=== PATIENT | male | born 1950 | race Hispanic/Latino ===

== ENCOUNTER 2019-08-12 07:32 | Observation (INO) | payer MEDICARE ==
[2019-08-11 15:24] LABS: BASOPHILS % 0.5 % (0.0-1.0); EOSINOPHILS # (AUTO) 0.1 (0.0-0.4); EOSINOPHILS % 0.9 % (0.0-6.0); HEMATOCRIT 44.6 % (38.2-49.6); LYMPHOCYTES # (AUTO) 2.2 (1.0-3.2); LYMPHOCYTES % 29.5 % (18.0-39.1); MEAN CORPUSCULAR HGB CONC 33.6 g/dL (31-35); MEAN CORPUSCULAR VOLUME 86.1 fL (81-99); MONOCYTES # (AUTO) 0.7 (0.2-0.8); MONOCYTES % 8.9 % (4.4-11.3); NEUTROPHILS # (AUTO) 4.5 (2.1-6.9); NEUTROPHILS % 59.9 % (38.7-80.0); PLATELET COUNT 219 x10e3/uL (140-360); RED BLOOD COUNT 5.18 x10e6/uL (4.3-5.7)
[2019-08-11 15:42] LABS: ANION GAP 18.5 mmol/L (8-16); CREATININE, SERUM 1.33 mg/dL (0.72-1.25); POTASSIUM 4.5 mmol/L (3.5-5.1)
--- NOTE | 2019-08-11 16:10 | Diagnostic Imaging Report ---
EXAMINATION: PA and lateral views of the chest. COMPARISON: Chest 2 views 06/15/2019 CLINICAL HISTORY: Preoperative exam for prostate surgery DISCUSSION: Lines/tubes: None. Lungs: The lungs are well inflated and clear. There is no evidence of pneumonia or pulmonary edema. Pleura: There is no pleural effusion or pneumothorax. Heart and mediastinum: Cardiomediastinal silhouette is unremarkable. Pulmonary vasculature is normal. Bones and soft tissues: No acute bony abnormalities. Mild age-appropriate degenerative changes in the thoracic spine IMPRESSION: No acute cardiopulmonary abnormalities. Signed by: Dr. Tl Callejas M.D. on 08/11/2019 4:06 PM
[~2019-08-12] VITALS: Ht 180.3 cm; Wt 95.3 kg
[~2019-08-12 07:32] MED LIST: ASPIR 8181 MG PO; ATORVASTATIN CA10 MG PO; ATORVASTATIN CA20 MG PO; CLOPIDOGREL75 MG PO; GLIPIZIDE5 MG PO; JANUMET 50-1,01 EACH PO; LISINOPRIL2.5 MG PO; METOPROLOL TART25 MG PO
[2019-08-12] MEDS ORDERED: SODIUM CHLORIDE 0.9% 1000ML 1,000 ML ONE (07:57)
[2019-08-12] MEDS ORDERED: CLINDAMYCIN 300MG 50 ML IV ONE (07:57)
[2019-08-12] MEDS ORDERED: GENTAMICIN 80MG/NS 100 ML 200 ML IV ONE (07:57)
[2019-08-12] MEDS ORDERED: PIPER-TAZ 3.375 GM 50 ML ONE (07:57)
[2019-08-12] MEDS ORDERED: INSULIN REGULAR, HUMAN 100 UNIT/1 ML 3ML VIAL ONE (08:26)
[2019-08-12] MEDS ORDERED: IOPAMIDOL 300MG/ML 50ML INFUS..BTL IV ONE (10:17)
[2019-08-12] MEDS ORDERED: B&O 60MG R/S 60 MG SUPP PR ONE (10:18)
[2019-08-12] MEDS ORDERED: ONDANSETRON HCL INJ 2MG/ML 2ML 2 MG/ML VIAL IV PRN (10:45)
[2019-08-12] MEDS ORDERED: B&O 60MG R/S 60 MG SUPP PR PRN (10:45)
[2019-08-12] MEDS ORDERED: ACETAMINOPHEN/CODEINE 300MG - 30MG TAB PO PRN (10:45)
[2019-08-12] MEDS ORDERED: DIPHENHYDRAMINE HCL 25 MG CAP PO PRN (10:45)
[2019-08-12] MEDS ORDERED: ACETAMINOPHEN 1000 MG/100 ML 100 ML IV ONE (11:18)
[2019-08-12] MEDS ORDERED: FUROSEMIDE INJ 10 MG/ML 4 ML VIAL ONE (11:40)
[2019-08-12] MEDS ORDERED: LIDOCAINE HCL 2% LOCAL INJ 5 ML SDV VIAL INJ ONE (12:49)
[2019-08-12] MEDS ORDERED: ONDANSETRON HCL INJ 2MG/ML 2ML 2 MG/ML VIAL ONE (12:49)
[2019-08-12] MEDS ORDERED: ACETAMINOPHEN 1000 MG/100 ML IV ONE (12:49)
[2019-08-12] MEDS ORDERED: SEVOFLURANE INHAL SOLN 250 ML PEN BTL ONE (12:49)
[2019-08-12] MEDS ORDERED: PROPOFOL IV EMULSION 10 MG/ML 20 ML VIAL ONE (12:49)
[2019-08-12] MEDS: PHENAZOPYRIDINE HCL 100 MG TAB PO SCH ×2 (13:00→17:46)
[2019-08-12 14:05] VITALS: BP 136/63
[2019-08-12 14:06] VITALS: BP 136/63
[2019-08-12 14:28] LABS: BASOPHILS % 0.4 % (0.0-1.0); EOSINOPHILS # (AUTO) 0.1 (0.0-0.4); EOSINOPHILS % 0.7 % (0.0-6.0); LYMPHOCYTES # (AUTO) 1.7 (1.0-3.2); LYMPHOCYTES % 19.2 % (18.0-39.1); MEAN CORPUSCULAR HEMOGLOBIN 28.7 pg (28-32); MEAN CORPUSCULAR HGB CONC 33.3 g/dL (31-35); MONOCYTES # (AUTO) 0.6 (0.2-0.8); NEUTROPHILS # (AUTO) 6.5 (2.1-6.9); NEUTROPHILS % 72.3 % (38.7-80.0); PLATELET COUNT 210 x10e3/uL (140-360); RED BLOOD COUNT 5.23 x10e6/uL (4.3-5.7)
[2019-08-12 14:46] LABS: ANION GAP 17.6 mmol/L (8-16); CALCIUM 9.2 mg/dL (8.4-10.2); CREATININE, SERUM 1.27 mg/dL (0.72-1.25); POTASSIUM 4.6 mmol/L (3.5-5.1)
[2019-08-12] MEDS: PIPER-TAZ 3.375 GM 50 ML IV SCH ×2 (15:00→22:02)
[2019-08-12] MEDS: SOD CHL 0.45%/POT CHL 20MEQ 1,000 ML IV SCH ×2 (15:00→18:34)
[2019-08-12 15:55] VITALS: BP 129/62
[2019-08-12] MEDS ORDERED: DEXTROSE 50% SYRINGE 50 ML IV PRN (17:30)
[2019-08-12] MEDS: DOCUSATE SODIUM 100 MG CAP PO SCH (17:46)
[2019-08-12] MEDS: INSULIN LISPRO 100 UNIT/1 ML 3ML VIAL SQ SCH ×2 (18:24→20:23)
[2019-08-12] MEDS: METFORMIN HCL 500 MG TAB PO SCH (18:24)
[2019-08-12] MEDS: SITAGLIPTIN 100 MG TAB PO SCH (18:24)
--- NOTE | 2019-08-12 19:13 | NUR ---
WALKING ROUNDS PERFORMED, RECEIVED PT LAYING SEMI FOWLERS IN BED, AAOX3, RR EVEN AND NON-LABORED, ON ROOM AIR. NO S/SX OF DISTRESS NOTED. CBI TO ЮЛИЯ. LEFT PT LAYING SEMI FOWLERS IN BED, BED IN LOW LOCKED POSITION, SIDE RAILS UPX2, CALL LIGHT AND PHONE WITHIN REACH.
[2019-08-12] MEDS ORDERED: FENTANYL CITRATE/PF 100MCG/2 ML INJ ONE (19:55)
[2019-08-12 20:00] VITALS: BP 103/63
[2019-08-12] MEDS: ATORVASTATIN 40 MG TAB PO SCH (20:23)
[2019-08-12 20:24] VITALS: BP 103/63
[2019-08-12] MEDS ORDERED: ATORVASTATIN 20 MG TAB PO SCH (21:00)
[2019-08-13] VITALS (8 sets, daily range): BP systolic 103–138; BP diastolic 56–78
[2019-08-13] MEDS: SOD CHL 0.45%/POT CHL 20MEQ 1,000 ML IV SCH (00:23)
[2019-08-13] MEDS: PIPER-TAZ 3.375 GM 50 ML IV SCH ×3 (05:57→21:30)
[2019-08-13 06:01] LABS: BASOPHILS % 0.3 % (0.0-1.0); EOSINOPHILS % 0.1 % (0.0-6.0); HEMATOCRIT 42.4 % (38.2-49.6); HEMOGLOBIN 14.3 g/dL (14.0-18.0); LYMPHOCYTES # (AUTO) 2.1 (1.0-3.2); LYMPHOCYTES % 15.4 % (18.0-39.1); MEAN CORPUSCULAR HEMOGLOBIN 28.8 pg (28-32); MEAN CORPUSCULAR HGB CONC 33.7 g/dL (31-35); MEAN CORPUSCULAR VOLUME 85.5 fL (81-99); MONOCYTES # (AUTO) 1.2 (0.2-0.8); MONOCYTES % 8.9 % (4.4-11.3); NEUTROPHILS # (AUTO) 10.1 (2.1-6.9); NEUTROPHILS % 74.7 % (38.7-80.0); PLATELET COUNT 199 x10e3/uL (140-360); RED BLOOD COUNT 4.96 x10e6/uL (4.3-5.7); RED CELL DISTRIBUTION WIDTH 13.2 % (11.7-14.4)
[2019-08-13 06:24] LABS: ANION GAP 15.9 mmol/L (8-16); BLOOD UREA NITROGEN 18 mg/dL (7-26); BUN/CREATININE RATIO 16 (6-25); CALCIUM 8.7 mg/dL (8.4-10.2); CARBON DIOXIDE 22 mmol/L (22-29); CHLORIDE 98 mmol/L (98-107); CREATININE, SERUM 1.16 mg/dL (0.72-1.25); EST GLOMERULAR FILTRATION RATE > 60 ML/MIN (60-); GLUCOSE 202 mg/dL (74-118); POTASSIUM 3.9 mmol/L (3.5-5.1); SODIUM 132 mmol/L (136-145)
[2019-08-13] MEDS: INSULIN LISPRO 100 UNIT/1 ML 3ML VIAL SQ SCH ×4 (08:00→21:30)
[2019-08-13] MEDS ORDERED: [UNRECOGNIZED DRUG - OTHER] PO SCH (09:00)
[2019-08-13] MEDS ORDERED: SITAGLIPTIN PHOS PO SCH (09:00)
[2019-08-13] MEDS ORDERED: METFORMIN HCL PO SCH (09:00)
[2019-08-13] MEDS: GLIPIZIDE 5 MG TAB PO SCH ×2 (09:19→16:54)
[2019-08-13] MEDS: METOPROLOL TARTRATE 25 MG TAB PO SCH ×2 (09:20→16:55)
[2019-08-13] MEDS: SITAGLIPTIN 100 MG TAB PO SCH ×2 (09:20→16:54)
[2019-08-13] MEDS: METFORMIN HCL 500 MG TAB PO SCH ×2 (09:20→16:54)
[2019-08-13] MEDS: DOCUSATE SODIUM 100 MG CAP PO SCH ×2 (09:20→16:54)
[2019-08-13] MEDS: LISINOPRIL 2.5 MG TAB PO SCH (09:21)
[2019-08-13] MEDS: PHENAZOPYRIDINE HCL 100 MG TAB PO SCH ×3 (09:21→16:55)
--- NOTE | 2019-08-13 19:04 | NUR ---
WALKING ROUNDS PERFORMED, RECEIVED PT LAYING SEMI FOWLERS IN BED, AAOX3, RR EVEN AND NON-LABORED, ON ROOM AIR. NO S/SX OF DISTRESS NOTED. CBI TO REDMAN BAG. LEFT PT LAYING SEMI FOWLERS IN BED, BED IN LOW LOCKED POSITION, SIDE RAILS UPX2, CALL LIGHT AND PHONE WITHIN REACH.
[2019-08-13] MEDS: ATORVASTATIN 40 MG TAB PO SCH (21:30)
[2019-08-14] VITALS (7 sets, daily range): BP systolic 113–157; BP diastolic 65–83
[2019-08-14 06:21] LABS: BASOPHILS % 0.2 % (0.0-1.0); EOSINOPHILS % 0.2 % (0.0-6.0); HEMOGLOBIN 14.1 g/dL (14.0-18.0); LYMPHOCYTES # (AUTO) 1.7 (1.0-3.2); LYMPHOCYTES % 13.1 % (18.0-39.1); MEAN CORPUSCULAR HEMOGLOBIN 28.9 pg (28-32); MEAN CORPUSCULAR HGB CONC 33.6 g/dL (31-35); MEAN CORPUSCULAR VOLUME 86.1 fL (81-99); MONOCYTES # (AUTO) 1.4 (0.2-0.8); MONOCYTES % 10.6 % (4.4-11.3); NEUTROPHILS # (AUTO) 9.9 (2.1-6.9); NEUTROPHILS % 75.6 % (38.7-80.0); PLATELET COUNT 193 x10e3/uL (140-360); RED BLOOD COUNT 4.88 x10e6/uL (4.3-5.7); RED CELL DISTRIBUTION WIDTH 13.2 % (11.7-14.4)
[2019-08-14] MEDS: PIPER-TAZ 3.375 GM 50 ML IV SCH ×3 (06:21→21:50)
[2019-08-14 06:39] LABS: ANION GAP 17.2 mmol/L (8-16); CREATININE, SERUM 1.41 mg/dL (0.72-1.25); POTASSIUM 4.2 mmol/L (3.5-5.1)
--- NOTE | 2019-08-14 07:00 | NUR ---
Received the pt. with c bi off and urine oleg. Later in the morning during dr. freed the urine is dark red and the irrigation was resumed and will revisit the maintain urine is clear.
[2019-08-14] MEDS: INSULIN LISPRO 100 UNIT/1 ML 3ML VIAL SQ SCH ×4 (07:30→21:44)
[2019-08-14] MEDS: DOCUSATE SODIUM 100 MG CAP PO SCH ×2 (09:00→17:56)
[2019-08-14] MEDS: SITAGLIPTIN 100 MG TAB PO SCH ×2 (09:21→17:56)
[2019-08-14] MEDS: GLIPIZIDE 5 MG TAB PO SCH ×2 (09:21→17:56)
[2019-08-14] MEDS: METFORMIN HCL 500 MG TAB PO SCH ×2 (09:21→17:56)
[2019-08-14] MEDS: METOPROLOL TARTRATE 25 MG TAB PO SCH ×2 (09:22→17:57)
[2019-08-14] MEDS: PHENAZOPYRIDINE HCL 100 MG TAB PO SCH ×3 (09:22→17:56)
[2019-08-14] MEDS: LISINOPRIL 2.5 MG TAB PO SCH (09:22)
--- NOTE | 2019-08-14 11:19 | NUR ---
Order for HH received. In network with pt's insurance is [facility]. Spoke to patient and family, signed choice for [facility]. Additional hands on teaching is needed for moreira, did empty moreira bag. Informed Tamiko GOULD of need for hands on teaching before DC. IMM explained to patient, patient signed, copy to patient, copy to chart
--- NOTE | 2019-08-14 11:20 | NUR ---
Clinicals faxed to [facility], [phone], ph [phone]. Spoke to rep oleg about need to know when nurse will come out and contact info for her so this info can be provided to , Garima Hunt [phone]
[2019-08-14] MEDS ORDERED: ONDANSETRON HCL 4 MG ORAL DISINTEGRATING TAB PO PRN (13:15)
--- NOTE | 2019-08-14 14:32 | NUR ---
The pt. has been discharged my dr. Lainez pending okay with Dr. Tesfaye. The pt's urine has been yellow since 1100 and a call was placed to Dr. Tesfaye for discharge orders. The pt. and spouse will be instructed how to drain and record the output.
--- NOTE | 2019-08-14 15:52 | NUR ---
The pt. started to show sight amt bleed once the bladder irrigation was decreased and it was increased again and the pt. was advised that he will need to remain in hospital until there is no bleeding at all.
[2019-08-14] MEDS: ATORVASTATIN 40 MG TAB PO SCH (17:57)
--- NOTE | 2019-08-14 18:22 | NUR ---
Bladder irrigation is continued.
--- NOTE | 2019-08-14 19:10 | NUR ---
Patient visited in room during nursing rounds. Patient alert and oriented x3. No distress or discomfort noted. On continuous irrigation and urine appear clear yellow at this time. Per report from antoni RN (Tamiko), the urine was quite blood today and thus irrigation was continued. Will monitor urine output and pass report to incoming shift tomorrow. Pt ambulatory with standby assist prn. On scheduled IV antibiotics. Will monitor closely.
[2019-08-14] MEDS ORDERED: SODIUM CHLORIDE 0.9% 250ML 250 ML ONE (21:50)
[2019-08-15 00:17] VITALS: BP 121/72
--- NOTE | 2019-08-15 00:35 | NUR ---
Urine in moreira bag observed and it was clear orange in color. Few spots of blood noted on tubing but otherwise urine was clear and not bloody at this time. Continuous irrigation still in effect.
[2019-08-15 04:00] VITALS: BP 148/77
[2019-08-15] MEDS: PIPER-TAZ 3.375 GM 50 ML IV SCH (05:48)
[2019-08-15 05:53] LABS: BASOPHILS # (AUTO) 0.1 (0.0-0.1); BASOPHILS % 0.4 % (0.0-1.0); EOSINOPHILS # (AUTO) 0.1 (0.0-0.4); EOSINOPHILS % 0.9 % (0.0-6.0); HEMATOCRIT 41.7 % (38.2-49.6); HEMOGLOBIN 13.5 g/dL (14.0-18.0); LYMPHOCYTES # (AUTO) 1.9 (1.0-3.2); LYMPHOCYTES % 17.2 % (18.0-39.1); MEAN CORPUSCULAR HEMOGLOBIN 28.5 pg (28-32); MEAN CORPUSCULAR HGB CONC 32.4 g/dL (31-35); MONOCYTES # (AUTO) 1.1 (0.2-0.8); MONOCYTES % 10.1 % (4.4-11.3); PLATELET COUNT 192 x10e3/uL (140-360); RED BLOOD COUNT 4.74 x10e6/uL (4.3-5.7); RED CELL DISTRIBUTION WIDTH 13.2 % (11.7-14.4)
[2019-08-15 06:13] LABS: CALCIUM 9.4 mg/dL (8.4-10.2); CREATININE, SERUM 1.42 mg/dL (0.72-1.25)
--- NOTE | 2019-08-15 07:00 | NUR ---
BEDSIDE SHIFT REPORT RECEIVED FROM EMERGENCY DISPATCH OPERATOR RN. PT DENIES NEEDS AT THIS TIME.
[2019-08-15 08:06] VITALS: BP 152/71
--- NOTE | 2019-08-15 08:12 | NUR ---
KUMAR met with Dr. Lainez this morning. He stated he is discharging patient home today as planned. Home health has already been arranged. [facility]: [phone]
[2019-08-15] MEDS: SITAGLIPTIN 100 MG TAB PO SCH (08:53)
[2019-08-15] MEDS: LISINOPRIL 2.5 MG TAB PO SCH (08:53)
[2019-08-15] MEDS: METFORMIN HCL 500 MG TAB PO SCH (08:53)
[2019-08-15] MEDS: PHENAZOPYRIDINE HCL 100 MG TAB PO SCH (08:53)
[2019-08-15] MEDS: METOPROLOL TARTRATE 25 MG TAB PO SCH (08:53)
[2019-08-15] MEDS: DOCUSATE SODIUM 100 MG CAP PO SCH (08:53)
[2019-08-15] MEDS: GLIPIZIDE 5 MG TAB PO SCH (08:53)
[2019-08-15] MEDS: INSULIN LISPRO 100 UNIT/1 ML 3ML VIAL SQ SCH (08:55)
[2019-08-15 09:00] VITALS: BP 152/71
--- NOTE | 2019-08-15 09:17 | Discharge Summary ---
CONSULTING PHYSICIAN: Dr. Tyler Ash. FINAL DIAGNOSES: 1. The patient is status post cystoscopy with dilatation and prostate biopsy associated with also TURP procedures. 2. Baseline increase in PSA, chronic kidney disease, and benign prostate hypertrophy associated with chronic prostatitis. SUMMARY: The patient is a 68-year-old male, status post urological procedures as mentioned above. The patient postoperatively admitted to the hospital for postoperative care. The patient continued to do better. He is stable. No chest pain. No shortness of breath. No abdominal pain. His aspirin and Plavix have been on hold for now. The patient has slight hematuria. He did receive continuous irrigation. Pathology of the prostate biopsy is still pending. The patient will be going home with a Richey catheter and discontinue the Richey catheter on Saturday. The patient is stable. He will follow up with Dr. Tyler Ash for postoperative care. On discharge, the patient will be put off on his aspirin and Plavix until cleared by Dr. Ash for resume. The patient is otherwise stable. Discharged home today when cleared with Dr. Ash on his rounds. The patient will resume his home medication, on hold for Plavix and aspirin until further instruction. He will take Colace, Zofran, Tylenol No.3 and Levaquin, prescriptions were given. MD DORINA Gray/MYLES /[id number]
--- NOTE | 2019-08-15 11:00 | NUR ---
PT GIVEN SUPPLIES FOR HOME [facility]. PT GIVEN INSTRUCTIONS ON SCHEDULED IRRIGATIONS. PT PLACED IN LEG BAG AND GIVEN ADDITIONAL BEDSIDE BAGS. PT AND SPOUSE GAVE TEACH BACK ON IRRIGATION AND CHANGING THE BAGS OUT FROM LEG BAG TO BS BAG AND BACK AGAIN.
--- NOTE | 2019-08-15 16:29 | Operative Report ---
DATE OF PROCEDURE: 08/12/2019 SURGEON: Tyler Ash MD PREOPERATIVE DIAGNOSES: 1. Obstructive benign prostatic hyperplasia. 2. Chronic renal insufficiency. 3. Elevated PSA. POSTOPERATIVE DIAGNOSES: 1. Obstructive benign prostatic hyperplasia. 2. Chronic renal insufficiency. 3. Elevated PSA. 4. Urethral stricture disease at the fossa navicularis and mildly at the bulbar urethra. 5. Bladder diverticula. TESTS PERFORMED: 1. Transrectal sonography interpretation, no radiologist present. 2. Ultrasound guidance for needle biopsies interpretation, no radiologist present. 3. Transrectal needle biopsies of the prostate (separate procedure performed for the elevated PSA). 4. Cystourethroscopy with calibration and dilation of urethral stricture disease (separate performed for stricture disease). 5. Cystourethroscopy with bilateral ureteral catheterization and retrograde ureteropyelography (separate procedure performed for renal insufficiency. 6. Interpretation of retrograde ureteropyelography. 7. Supervision of fluoroscopy, no radiologist present. 8. Cystourethroscopy with transurethral resection of the prostate, utilizing the plasma button electrode. ANESTHESIA: General. COMPLICATIONS: None. CLINICAL SUMMARY: Neo Hunt is a 68-year-old man with the above preoperative diagnoses. He is brought for the above procedures. He is aware of the risks of bleeding, infection, injury to adjacent structures, incontinence, impotence, retrograde ejaculation, need for additional procedures and elected to proceed. OPERATIVE PROCEDURE IN DETAIL: Informed consent was verified. Neo Hunt was properly identified, taken to the operating room, placed on the cystoscopy table in supine position. Anesthesia was uneventfully begun. The patient was then carefully gently repositioned in the dorsal lithotomy position with all pressure points well padded. Transrectal ultrasonography was performed. Interpretation of transrectal ultrasonography: The patient's prostate was very large. It measured 107 mL in volume. There were diffuse calcifications mostly present in the transition zone, some were present in the peripheral zone as well. No suspicious hypoechoic lesions were identified. Seminal vesicles were unremarkable. Median lobe was not appreciated. With ultrasonographic guidance, needle biopsies of the prostate were taken. Multiple biopsies were taking at each of six locations. They were sent in six specimen cups labeled right versus left and base versus mid versus apex. Once all biopsies were obtained, the patient's genitalia were prepared and draped in usual sterile fashion. The 22.5-Argentine cystoscope sheath with visual obturator in place, atraumatically is placed in the patient's urethral meatus, but there was obstruction at the fossa navicularis. We calibrated the fossa navicularis region at 18-Argentine in size and then we dilated it to 24-Argentine in size. We then placed the cystoscope sheath atraumatically and guided down otherwise unremarkable urethra until we reached the bulbar region where there was wide caliber, not clinically significant stricture. We passed a normal sphincteric region and we went into the prostate bed, which exhibited severely obstructing bilobar prostatic hypertrophy with kissing lateral lobes. We entered the patient's bladder where panendoscopy revealed multiple small diverticula. No suspicious mucosal lesions and no stones. An 8-Argentine catheter was used to cannulate each ureter and retrograde ureteral pyelograms were performed. Interpretation of retrograde ureteropyelography contrast was instilled in retrograde fashion bilaterally. There were no tumors, no stones, and no diverticula. Unobstructed drainage was observed fluoroscopically bilaterally. There was dramatic J hooking with tortuosity of the ureter distally noted bilaterally. There was some ureteral tortuosity noted. Unobstructed drainage was observed bilaterally fluoroscopically. We utilized [place] sounds to finish the dilation procedure to 28-Argentine in size. Once we have dilated the urethra and calibrated to that size, the resectoscope sheath was atraumatically placed. We then proceeded performing transurethral resection of the prostate from the bladder neck tube, but never passed the verumontanum, and down the surgical capsule. This was a long procedure for a very large prostate, measuring 107 mL by ultrasonography. At the end of the procedure, we had a wide-open prostatic channel with excellent hemostasis. The resectoscope was withdrawn. Continuous irrigation Richey catheter was placed. He was irrigated to and from. It was placed on continuous irrigation with clear efflux. Belladonna and opium suppository were placed revealing a prostate large in 50 g, smooth, nonfluctuant without any nodules. The patient was then uneventfully reversed from anesthesia and taken to recovery room in stable condition. There were no complications at the end of the procedure. He tolerated the procedure well. Estimated blood loss was minimal. We will proceed with routine postoperative care and of course ongoing urological followup. Tyler MD GENA Ash/MODL /[id number] cc: Karma Stearns
--- OUTSIDE RECORDS SUMMARY | 2019-08-21 10:58 | XMS REPORT ---
Author Author [facility] Address Unknown Phone Unavailable Care Team Providers Care Cloth Bleaching Range Operator Chief Name Role Phone AVA CHRISTIAN Unavailable Unavailable Problems This patient has no known problems. Allergies, Adverse Reactions, Alerts This patient has no known allergies or adverse reactions. Medications This patient has no known medications. Encounters Start Date/Time End Date/Time Encounter Type Admission Type Attending Clinicians Care Facility Care Department Encounter ID 2019-01-18 02:11:00 2019-01-17 23:48:00 Inpatient [facility]500 Results Test Description Test Time Test Comments Text Results Atomic Results Result Comments CHEST 2 VIEWS 2019-08-11 16:03:00 [place] [address] Patient Name: PEDRO PABLO LARSEN MR #: [id number] : 1950 Age/Sex: 68/M Req #: [id number] Adm Physician: Ordered by: AVA CHRISTIAN MD Report #: [id number] Location: OR Room/Bed: Procedure: [id number] DX/CHEST 2 VIEWS Exam Date: Exam Time: REPORT STATUS: Signed EXAMINATION: PA and lateral views of the chest. COMPARISON: Chest 2 views 06/15/2019 CLINICAL HISTORY: Preoperative exam for prostate surgery DISCUSSION: Lines/tubes: None. Lungs: The lungs are well inflated and clear. There is no evidence of pneumonia or pulmonary edema. Pleura: There is no pleural effusion or pneumothorax. Heart and mediastinum: Cardiomediastinal silhouette is unremarkable. Pulmonary vasculature is normal. Bones and soft tissues: No acute bony abnormalities. Mild age-appropriate degenerative changes in the thoracic spine IMPRESSION: No acute cardiopulmonary abnormalities. Signed by: Dr. Ligia Callejas M.D. on 08/11/2019 4:06 PM Dictated By: LIGIA CALLEJAS MD 1606 Transcribed By: BENOIT on 08/11/19 1606 COPY TO: AVA CHRISTIAN MD CHEST 2 VIEWS 2019-06-15 16:12:00 [place] [address] Patient Name: PEDRO PABLO LARSEN MR #: [id number] : 1950 Age/Sex: 68/M Req #: [id number] Adm Physician: Ordered by: AVA CHRISTIAN MD Report #: [id number] Location: OR Room/Bed: Procedure: [id number] DX/CHEST 2 VIEWS Exam Date: 06/15/19 Exam Time: 1540 REPORT STATUS: Signed Chest, 2 views, 06/15/2019. History: Preop, pros barrera surgery. Comparison: None available. Findings: The cardiomediastinal silhouette and pulmonary vasculature are within normal limits. The lungs are clear without evidence of consolidation or pleural effusion. Degenerative changes are present in the thoracic spine. There are no acute osseous or soft tissue abnormalities. Impression: No acute cardiopulmonary abnormality. Signed by: Silas Helms on 06/15/2019 4:12 PM Dictated By: SILAS HELMS MD 1612 Transcribed By: BENOIT on 06/15/191611 COPY TO: AVA CHRISTIAN MD
== END 2019-08-15 11:40 | disposition home or self-care (01) ==
LOC: OR 07:32 → PACU V 12:41 → INTOOBSV 12:41 → MED/SURG 13:54
PROVIDERS: ADMIT Internal Medicine; ATTEND Internal Medicine
DX: N40.1 Benign prostatic hyperplasia with lower urinary tract symptoms (principal); I12.9 Hypertensive chronic kidney disease with stage 1 through stage 4 chronic kidney disease, or unspecified chronic kidney disease; N18.9 Chronic kidney disease, unspecified; N13.8 Other obstructive and reflux uropathy; N41.9 Inflammatory disease of prostate, unspecified; E11.22 Type 2 diabetes mellitus with diabetic chronic kidney disease; E78.5 Hyperlipidemia, unspecified; N32.3 Diverticulum of bladder
CPT/HCPCS: 36415 ×5; 52005; 52630; 71046; 74420; 76872; 76998; 80048 ×5; 82948 ×4; 83735; 85025 ×5; 88305; 93005; C1758; G0378 ×4; J0131; J1580; J1940; J2001; J2405; J2543 ×4; J2704; J7030; J7050; Q9967; J1817; J3010

== ENCOUNTER 2019-08-18 12:38 | Observation (INO) | payer MEDICARE ==
[~2019-08-18] VITALS: Ht 180.3 cm; Wt 94.3 kg
--- NOTE | 2019-08-18 13:15 | NUR ---
PATIENT IN RESTROOM WHEN CALLED
[2019-08-18 14:31] LABS: BASOPHILS % 0.4 % (0.0-1.0); EOSINOPHILS # (AUTO) 0.1 (0.0-0.4); EOSINOPHILS % 0.4 % (0.0-6.0); HEMATOCRIT 41.8 % (38.2-49.6); LYMPHOCYTES # (AUTO) 1.7 (1.0-3.2); LYMPHOCYTES % 14.9 % (18.0-39.1); MEAN CORPUSCULAR HEMOGLOBIN 28.9 pg (28-32); MEAN CORPUSCULAR HGB CONC 33.5 g/dL (31-35); MEAN CORPUSCULAR VOLUME 86.4 fL (81-99); MONOCYTES # (AUTO) 0.9 (0.2-0.8); MONOCYTES % 8.2 % (4.4-11.3); NEUTROPHILS # (AUTO) 8.6 (2.1-6.9); NEUTROPHILS % 75.7 % (38.7-80.0); PLATELET COUNT 265 x10e3/uL (140-360); RED BLOOD COUNT 4.84 x10e6/uL (4.3-5.7); RED CELL DISTRIBUTION WIDTH 12.9 % (11.7-14.4)
[2019-08-18 14:34] LABS: INR 1.06; PROTHROMBIN TIME 14.3 seconds (11.9-14.5)
[2019-08-18 14:35] LABS: PARTIAL THROMBOPLASTIN TIME 37.1 seconds (23.8-35.5)
[2019-08-18 14:40] LABS: CLARITY,URINE CLOUDY (CLEAR); COLOR,URINE RED (YELLOW)
[2019-08-18 14:41] LABS: BILIRUBIN,URINE NEGATIVE (NEGATIVE); KETONES,URINE 1+ (NEGATIVE); LEUKOCYTE ESTERASE ,URINE TRACE (NEGATIVE); NITRITE,URINE POSITIVE (NEGATIVE); PROTEIN,URINE DIPSTICK 2+ (NEGATIVE); URINE UROBILINOGEN 1 mg/dL (0.2 - 1)
[2019-08-18 14:43] LABS: ALBUMIN 3.3 g/dL (3.5-5.0); ALBUMIN/GLOBULIN RATIO 0.8 (0.8-2.0); ANION GAP 17.9 mmol/L (8-16); CALCIUM 9.7 mg/dL (8.4-10.2); CREATININE, SERUM 1.37 mg/dL (0.72-1.25); POTASSIUM 3.9 mmol/L (3.5-5.1)
[2019-08-18 14:59] LABS: RBC,URINE 21-50 /HPF (0-5); WBC,URINE (MAN) 21-50 /HPF (0-5)
[2019-08-18 15:00] LABS: BACTERIA,URINE FEW /HPF; EPITHELIAL CELLS,URINE FEW /LPF
[2019-08-18] MEDS ORDERED: SODIUM CHLORIDE 0.9% 1000ML 1,000 ML IV STA (15:33)
[2019-08-18] MEDS ORDERED: PIPER-TAZ 3.375 GM 50 ML IV STA (15:33)
[2019-08-18] MEDS ORDERED: SODIUM CHLORIDE 0.9% 1000ML 1,000 ML ONE (19:34)
[2019-08-18] MEDS: SITAGLIPTIN 100 MG TAB PO SCH (22:40)
[2019-08-18] MEDS: METOPROLOL TARTRATE 25 MG TAB PO SCH (22:40)
[2019-08-18] MEDS: ATORVASTATIN 20 MG TAB PO SCH (22:40)
[2019-08-18] MEDS: METFORMIN HCL 500 MG TAB PO SCH (22:40)
[2019-08-19] MEDS: PIPER-TAZ 3.375 GM 50 ML IV SCH ×5 (01:08→21:56)
[2019-08-19 06:29] LABS: BASOPHILS % 0.3 % (0.0-1.0); EOSINOPHILS # (AUTO) 0.1 (0.0-0.4); EOSINOPHILS % 0.5 % (0.0-6.0); HEMATOCRIT 36.3 % (38.2-49.6); HEMOGLOBIN 12.1 g/dL (14.0-18.0); LYMPHOCYTES % 21.3 % (18.0-39.1); MEAN CORPUSCULAR HEMOGLOBIN 28.9 pg (28-32); MEAN CORPUSCULAR HGB CONC 33.3 g/dL (31-35); MEAN CORPUSCULAR VOLUME 86.6 fL (81-99); MONOCYTES % 10.6 % (4.4-11.3); NEUTROPHILS # (AUTO) 6.2 (2.1-6.9); NEUTROPHILS % 66.9 % (38.7-80.0); PLATELET COUNT 219 x10e3/uL (140-360); RED BLOOD COUNT 4.19 x10e6/uL (4.3-5.7)
[2019-08-19 07:12] LABS: ALBUMIN 2.7 g/dL (3.5-5.0); ALBUMIN/GLOBULIN RATIO 0.8 (0.8-2.0); ANION GAP 14.6 mmol/L (8-16); CALCIUM 8.3 mg/dL (8.4-10.2); CREATININE, SERUM 1.29 mg/dL (0.72-1.25); POTASSIUM 3.6 mmol/L (3.5-5.1)
[2019-08-19] MEDS: METFORMIN HCL 500 MG TAB PO SCH (08:25)
[2019-08-19] MEDS: GLIPIZIDE 5 MG TAB PO SCH ×2 (08:25→16:07)
[2019-08-19] MEDS: LISINOPRIL 2.5 MG TAB PO SCH (08:25)
[2019-08-19] MEDS: METOPROLOL TARTRATE 25 MG TAB PO SCH ×2 (08:25→21:56)
[2019-08-19] MEDS: SITAGLIPTIN 100 MG TAB PO SCH ×2 (08:25→21:55)
[2019-08-19] MEDS ORDERED: DEXTROSE 50% SYRINGE 50 ML IV PRN (08:45)
--- NOTE | 2019-08-19 12:32 | NUR ---
STARTED CBI PER DR. Helena TRONCOSO
[2019-08-19] MEDS: INSULIN LISPRO 100 UNIT/1 ML 3ML VIAL SQ SCH ×3 (12:33→21:56)
[2019-08-19] MEDS: MORPHINE SULFATE INJ 4 MG/ML INJ 1ML IV PRN (13:44)
[2019-08-19] MEDS: ONDANSETRON HCL INJ 2MG/ML 2ML 2 MG/ML VIAL IV PRN (13:44)
[2019-08-19 14:31] VITALS: BP 140/61
[2019-08-19 14:45] VITALS: BP 140/61
[2019-08-19] MEDS: PHENAZOPYRIDINE HCL 100 MG TAB PO SCH (16:07)
[2019-08-19 20:00] VITALS: BP 129/73
[2019-08-19] MEDS: B&O 60MG R/S 60 MG SUPP PR PRN (20:22)
[2019-08-19 20:39] VITALS: BP 129/73
[2019-08-19] MEDS ORDERED: SODIUM CHLORIDE 0.9% 250ML 250 ML ONE (21:32)
[2019-08-19] MEDS: ATORVASTATIN 20 MG TAB PO SCH (21:55)
[2019-08-20] VITALS (9 sets, daily range): BP systolic 131–179; BP diastolic 62–95
[2019-08-20] MEDS: MORPHINE SULFATE INJ 4 MG/ML INJ 1ML IV PRN ×4 (01:00→23:00)
[2019-08-20] MEDS: PIPER-TAZ 3.375 GM 50 ML IV SCH ×2 (03:58→09:05)
[2019-08-20 06:03] LABS: BASOPHILS # (AUTO) 0.1 (0.0-0.1); BASOPHILS % 0.5 % (0.0-1.0); EOSINOPHILS # (AUTO) 0.2 (0.0-0.4); EOSINOPHILS % 1.6 % (0.0-6.0); HEMATOCRIT 38.1 % (38.2-49.6); HEMOGLOBIN 12.6 g/dL (14.0-18.0); LYMPHOCYTES # (AUTO) 2.3 (1.0-3.2); LYMPHOCYTES % 23.1 % (18.0-39.1); MEAN CORPUSCULAR HEMOGLOBIN 28.8 pg (28-32); MEAN CORPUSCULAR HGB CONC 33.1 g/dL (31-35); MONOCYTES # (AUTO) 0.9 (0.2-0.8); MONOCYTES % 9.6 % (4.4-11.3); NEUTROPHILS # (AUTO) 6.3 (2.1-6.9); NEUTROPHILS % 64.7 % (38.7-80.0); PLATELET COUNT 238 x10e3/uL (140-360); RED BLOOD COUNT 4.38 x10e6/uL (4.3-5.7); RED CELL DISTRIBUTION WIDTH 12.9 % (11.7-14.4)
[2019-08-20 06:32] LABS: ANION GAP 15.6 mmol/L (8-16); CALCIUM 8.9 mg/dL (8.4-10.2); CREATININE, SERUM 1.25 mg/dL (0.72-1.25); POTASSIUM 3.6 mmol/L (3.5-5.1)
[2019-08-20] MEDS: INSULIN LISPRO 100 UNIT/1 ML 3ML VIAL SQ SCH ×4 (07:30→21:00)
[2019-08-20] MEDS: SITAGLIPTIN 100 MG TAB PO SCH ×2 (08:43→21:56)
[2019-08-20] MEDS: LISINOPRIL 2.5 MG TAB PO SCH (08:43)
[2019-08-20] MEDS: METOPROLOL TARTRATE 25 MG TAB PO SCH ×2 (08:43→23:56)
[2019-08-20] MEDS: GLIPIZIDE 5 MG TAB PO SCH ×2 (08:43→17:20)
[2019-08-20] MEDS: PHENAZOPYRIDINE HCL 100 MG TAB PO SCH ×3 (08:44→17:20)
--- NOTE | 2019-08-20 10:42 | NUR ---
CALLED DR. GUTIERREZ- VOICE MESSAGE LEFT FOR DR. GUTIERREZ REGARDING IV ANTIBIOTIC REACHING A STOP DATE FOR TODAY AND AN ORDER FOR INPATIENT STATUS. AWAITING CALLBACK.
--- NOTE | 2019-08-20 10:51 | NUR ---
RECEIVED CALL BACK FROM DR. GUTIERREZ- NO NEW ORDERS RECEIVED. CONTINUE WITH CARE
[2019-08-20] MEDS: SODIUM CHLORIDE 0.9% 1000ML 1,000 ML IV SCH (11:07)
[2019-08-20] MEDS: B&O 60MG R/S 60 MG SUPP PR PRN ×2 (11:07→17:55)
--- NOTE | 2019-08-20 19:42 | NUR ---
PATIENT IS IN STABLE CONDITION WITH NO S/S OF RESPIRATORY DISTRESS. PAIN MEDICATION RECENTLY GIVEN TO THE PATIENT. REDMAN INTACT AND DRAINING; CONTINUOUS BLADDER IRRIGATION INFUSING. DIAPER APPLIED. SON PRESENT IN ROOM. CALL LIGHT IS WITHIN REACH, PATIENT INSTRUCTED TO CALL FOR ASSISTANCE NEEDED. REPORT GIVEN TO ONCOMING NURSE.
--- NOTE | 2019-08-20 20:08 | NUR ---
RECEIVED PT IN BED AOX3 .PT IS IN CONTINUOUS IRRIGATION.F/C INTACT DRAINING ORANGE COLORED URINE ..CALL LIGHT WITH IN REACH .FAMILY AT THE BEDSIDE .CONTINUE TO MONITOR
[2019-08-20] MEDS: ATORVASTATIN 20 MG TAB PO SCH (21:56)
[2019-08-20] MEDS: ONDANSETRON HCL INJ 2MG/ML 2ML 2 MG/ML VIAL IV PRN (23:00)
--- NOTE | 2019-08-21 | NUR ---
Patient in bed with irragation flowing. Yellow urine noted. Patient c/o pain given meds and suppository as ordered by . Moreira care done and moreira taped to right leg. Patient had a med BM. Continue monitor. BS 148 tx as ordered by . Addendum: 08/22/19 at 0200 by Josselyn Valladares RN error
[2019-08-21] MEDS: B&O 60MG R/S 60 MG SUPP PR PRN ×4 (02:15→23:10)
[2019-08-21] MEDS: MORPHINE SULFATE INJ 4 MG/ML INJ 1ML IV PRN ×4 (03:15→23:10)
[2019-08-21] MEDS: ONDANSETRON HCL INJ 2MG/ML 2ML 2 MG/ML VIAL IV PRN ×2 (03:15→23:10)
[2019-08-21 04:00] VITALS: BP 147/78
[2019-08-21] MEDS: SODIUM CHLORIDE 0.9% 1000ML 1,000 ML IV SCH ×2 (04:33→20:00)
--- NOTE | 2019-08-21 05:37 | NUR ---
PT C/O PAIN AND GIVEN MORPHINE AND B AND O .IRRIGATED WITH 3 BIG BAG AND RUNNING 4 THE BAG .PT RESTING CALL LIGHT WITH IN REACH .CONTINUE TO MONITOR
--- NOTE | 2019-08-21 07:07 | NUR ---
CONTINUE BLADDER IRRIGATION .URINE IS SLIGHTLY RED NOW .IRRIGATED WITH 4 BAGS AND 5TH BAG IS RUNNING .CALL LIGHT WITH IN REACH BEDSIDE REPORT GIVEN TO THE ONCOMING NURSE
[2019-08-21] MEDS: INSULIN LISPRO 100 UNIT/1 ML 3ML VIAL SQ SCH ×4 (07:51→20:02)
[2019-08-21 08:00] VITALS: BP 158/65
[2019-08-21] MEDS: SITAGLIPTIN 100 MG TAB PO SCH ×2 (08:21→20:01)
[2019-08-21] MEDS: LISINOPRIL 2.5 MG TAB PO SCH (08:21)
[2019-08-21] MEDS: GLIPIZIDE 5 MG TAB PO SCH ×2 (08:21→17:10)
[2019-08-21] MEDS: METOPROLOL TARTRATE 25 MG TAB PO SCH ×2 (08:21→20:01)
[2019-08-21] MEDS: PHENAZOPYRIDINE HCL 100 MG TAB PO SCH ×3 (08:21→18:07)
[2019-08-21 08:50] VITALS: BP 158/65
[2019-08-21 12:00] VITALS: BP 133/67
--- NOTE | 2019-08-21 19:20 | NUR ---
Received change of shift report from AM nurse. Walking rounds completed.
[2019-08-21 20:00] VITALS: BP 171/96
[2019-08-21] MEDS: ATORVASTATIN 20 MG TAB PO SCH (20:01)
--- NOTE | 2019-08-22 | NUR ---
Patient in bed with irragation flowing. Yellow urine noted. Patient c/o pain given meds and suppository as ordered by MD. Moreira care done and moreira taped to right leg. Patient had a med BM. Continue monitor. BS 148 tx as ordered by .
[2019-08-22 02:00] VITALS: BP 135/71
[2019-08-22] MEDS: MORPHINE SULFATE INJ 4 MG/ML INJ 1ML IV PRN ×2 (02:36→08:54)
[2019-08-22] MEDS: ONDANSETRON HCL INJ 2MG/ML 2ML 2 MG/ML VIAL IV PRN (02:36)
[2019-08-22 07:20] VITALS: BP 155/72
[2019-08-22] MEDS: GLIPIZIDE 5 MG TAB PO SCH ×2 (08:10→17:04)
[2019-08-22] MEDS: INSULIN LISPRO 100 UNIT/1 ML 3ML VIAL SQ SCH ×4 (08:11→20:58)
[2019-08-22] MEDS: METOPROLOL TARTRATE 25 MG TAB PO SCH ×2 (08:11→20:57)
[2019-08-22] MEDS: LISINOPRIL 2.5 MG TAB PO SCH (08:11)
[2019-08-22] MEDS: PHENAZOPYRIDINE HCL 100 MG TAB PO SCH ×3 (08:11→17:04)
[2019-08-22] MEDS: SITAGLIPTIN 100 MG TAB PO SCH ×2 (08:11→20:57)
[2019-08-22 08:12] VITALS: BP 155/72
[2019-08-22] MEDS: B&O 60MG R/S 60 MG SUPP PR PRN (10:40)
[2019-08-22] MEDS: TOLTERODINE TARTRATE 2 MG TAB PO SCH ×2 (10:45→17:04)
[2019-08-22 11:28] VITALS: BP 137/68
--- NOTE | 2019-08-22 12:06 | NUR ---
DOMINIC Richey @11:29, patient urinated this time, tidwell colored urine, not in any distress, keep monitoring
[2019-08-22 15:32] VITALS: BP 128/64
--- NOTE | 2019-08-22 19:17 | NUR ---
Received change of shift report from AM nurse. Walking rounds completed.
[2019-08-22] MEDS: ATORVASTATIN 20 MG TAB PO SCH (20:57)
--- NOTE | 2019-08-22 21:00 | NUR ---
Patient AAOx3. Denies pain at this time. Up ambulating to BR with no difficulty noted. Continue monitor.
[2019-08-23] VITALS: BP 148/65
--- NOTE | 2019-08-23 | NUR ---
Patient c/o of some incontinece at this time. Cereal urine continue collecting.
[2019-08-23 04:00] VITALS: BP 159/69
--- NOTE | 2019-08-23 06:27 | NUR ---
Patient resting quitly in bed. Inquiring about D/C. Informed patient that MD will inform later today.
[2019-08-23 07:15] VITALS: BP 147/62
[2019-08-23] MEDS: INSULIN LISPRO 100 UNIT/1 ML 3ML VIAL SQ SCH (07:30)
[2019-08-23] MEDS: GLIPIZIDE 5 MG TAB PO SCH (08:21)
[2019-08-23] MEDS: TOLTERODINE TARTRATE 2 MG TAB PO SCH (08:21)
[2019-08-23] MEDS: METOPROLOL TARTRATE 25 MG TAB PO SCH (08:21)
[2019-08-23] MEDS: SITAGLIPTIN 100 MG TAB PO SCH (08:21)
[2019-08-23] MEDS: LISINOPRIL 2.5 MG TAB PO SCH (08:22)
[2019-08-23] MEDS: B&O 60MG R/S 60 MG SUPP PR PRN (08:22)
[2019-08-23] MEDS: PHENAZOPYRIDINE HCL 100 MG TAB PO SCH (08:22)
[2019-08-23 08:27] VITALS: BP 147/62
--- NOTE | 2019-08-23 08:44 | NUR ---
THE PT WAS MEDICATED FOR BLADDER SPASMS AND THE SERIAL URIME CONTINUES AND IS BLOOD TINGED AT THIS TIME.
[2019-08-23] MEDS ORDERED: MAGNESIUM HYDROXIDE 30 ML UDC PO PRN (09:30)
[2019-08-23] MEDS ORDERED: BISACODYL 10 MG SUPP PR ONE (10:00)
[2019-08-23] MEDS ORDERED: MAGNESIUM HYDROXIDE 30 ML UDC PO ONE (10:00)
--- NOTE | 2019-08-23 11:00 | NUR ---
The pt. was escorted to private car in stable condition post dr's visit.
[2019-08-23 11:23] VITALS: BP 137/74
== END 2019-08-23 11:25 | disposition home or self-care (01) ==
LOC: ER 12:38 → INTOOBSV 15:37 → ERHOLD 15:37 → MED/SURG3 08-19 19:40
PROVIDERS: ADMIT Internal Medicine; ATTEND Internal Medicine
DX: N30.01 Acute cystitis with hematuria (principal); I10 Essential (primary) hypertension; E11.9 Type 2 diabetes mellitus without complications; I25.10 Atherosclerotic heart disease of native coronary artery without angina pectoris
CPT/HCPCS: 36415 ×5; 80048; 80053 ×2; 81001; 82948 ×4; 85025 ×3; 85610; 85730; 87086; 96361; 99284; G0378 ×6; J2270 ×4; J2405 ×4; J2543 ×3; J7030 ×3; J7050; 96360